=== PATIENT | male | born 2000 ===

== ENCOUNTER 2018-02-26 12:41 | Inpatient (IN) | payer BC ==
[2018-02-26] MEDS ORDERED: Sodium Chloride 0.9% 1,000 ML IV STA (12:56)
--- NOTE | 2018-02-26 13:00 | ED PDOC ---
Arrival/HPI - General Chief Complaint: Abdominal Pain Time Seen by Provider: 02/26/18 12:53 Historian: Patient - History of Present Illness Narrative History of Present Illness (Text): 02/26/18 12:58 17 y/o male, no significant pmh, nkda, c/o periumbilical pain started this morning with nausea/vomiting with no abdominal surgical history. Pt. stated that he felt fine last night, woke up this morning with lower abdominal pain, associated with nausea/vomiting, no fever or chills, no chest pain or shortness of breath, no urinary symptoms, no other medical or psychological complaints. Past Medical History - Provider Review Nursing Documentation Reviewed: Yes - Psychiatric Hx Psychophysiologic Disorder: No Hx Substance Use: No Family/Social History - Physician Review Nursing Documentation Reviewed: Yes Family/Social History: Unknown Family HX Smoking Status: Never Smoked Hx Alcohol Use: No Hx Substance Use: No Allergies/Home Meds Allergies/Adverse Reactions: Allergies No Known Allergies Allergy (Verified 02/26/18 12:42) Home Medications: Home Meds Medication Instructions Recorded Confirmed No Known Home Med 02/26/18 02/26/18 Review of Systems - Review of Systems Constitutional: absent: Fatigue, Fevers Eyes: absent: Vision Changes ENT: absent: Hearing Changes Respiratory: absent: SOB, Cough Cardiovascular: absent: Chest Pain Gastrointestinal: Abdominal Pain, Nausea, Vomiting. absent: Diarrhea Musculoskeletal: absent: Arthralgias Skin: absent: Rash, Pruritis Neurological: absent: Headache, Dizziness Psychiatric: absent: Anxiety, Depression, Suicidal Ideation Physical Exam Vital Signs Reviewed: Yes Vital Signs Temp Pulse Resp BP Pulse Ox 02/26/18 12:43 97.8 F 98 H 16 116/71 100 Temperature: Afebrile Blood Pressure: Normal Pulse: Regular Respiratory Rate: Normal Appearance: Positive for: Well-Appearing, Non-Toxic, Comfortable Pain Distress: Mild Mental Status: Positive for: Alert and Oriented X 3 - Systems Exam Head: Present: Atraumatic, Normocephalic Pupils: Present: PERRL Extroacular Muscles: Present: EOMI Conjunctiva: Present: Normal Mouth: Present: Moist Mucous Membranes Neck: Present: Normal Range of Motion Respiratory/Chest: Present: Clear to Auscultation, Good Air Exchange. No: Respiratory Distress, Accessory Muscle Use Cardiovascular: Present: Regular Rate and Rhythm, Normal S1, S2. No: Murmurs Abdomen: Present: Tenderness (periumbilical and RLQ tenderness. ), Guarding (mild RLQ and periumbilical guarding. ). No: Distention, Peritoneal Signs, Rebound Back: Present: Normal Inspection Upper Extremity: Present: Normal Inspection. No: Cyanosis, Edema Lower Extremity: Present: Normal Inspection. No: Edema Neurological: Present: GCS=15, CN II-XII Intact, Speech Normal Skin: Present: Warm, Dry, Normal Color. No: Rashes Psychiatric: Present: Alert, Oriented x 3, Normal Insight, Normal Concentration Medical Decision Making ED Course and Treatment: 02/26/18 13:00 -Labs/ua -CT abdomen and pelvis -IVF/pepcid/zofran -Observe and reassess 02/26/18 16:53 -CT abdomen and pelvis show Acute appendicitis. No perforation or abscess. -Labs show no acute findings -UA show no UTI -Pt. feels well -EKG and chest xray ordered -IV zosyn and morphine ordered. -Pt.'s pmd Dr. Pollock doesn't come to the ER, paging Dr. Rivers for admission. 02/26/18 17:00 -Last oral intake was 02/25/2018 06:00pm yesterday, NPO for the past 23 hours. -I spoke to the medical service compensation administrator, Dr. Rivers, agreed to admit to her service, request Dr. Dean Bedoya for stat consult. residential framing carpenter and Dr. Bedoya paged. 02/26/18 17:05 -I spoke to Dr. Dean Bedoya about this case/labs/radiology results, will consult on this case and recommend to call vice president corporate communications. 02/26/18 17:12 -residential framing carpenter paged again. 02/26/18 17:20 -EKG: NSR @ 77 BPM, no ST elevation or depression, no T wave inversion. 02/26/18 17:50 -Chest xray: show No active pulmonary disease. -residential framing carpenter paged again, pending call back. 02/26/18 17:59 -I spoke to the vice president corporate communications Dr. Howard Hernandez, discussed about the case/labs/radiology result, he will come to evaluate the patient now and call Dr. Bedoya after evaluation. - RAD Interpretation Radiology Orders: 02/26/18 12:56 ABD PELVIS PO & IV CONTRAST [CT] Stat Date of service: 02/26/2018 PROCEDURE: CT Abdomen and Pelvis with contrast HISTORY: periumbilical pain COMPARISON: None. TECHNIQUE: CT scan of the abdomen and pelvis was performed after administration of intravenous contrast. Oral contrast was not administered. Coronal and sagittal reformatted images were obtained. Contrast dose: 100 mL Omnipaque 350 Radiation dose: Total exam DLP = 201.81 mGy-cm. This CT exam was performed using one or more of the following dose reduction techniques: Automated exposure control, adjustment of the mA and/or kV according to patient size, and/or use of iterative reconstruction technique. FINDINGS: LOWER THORAX: The visualized lungs are clear. LIVER: Normal in size with homogeneous enhancement. No gross lesion or ductal dilatation. GALLBLADDER AND BILE DUCTS: No calcified gallstones. PANCREAS: Normal in size with homogeneous enhancement. No gross lesion or ductal dilatation. SPLEEN: Normal in size and appearance. ADRENALS: No discrete nodule. KIDNEYS AND URETERS: Normal in size with homogeneous enhancement. No hydronephrosis. No solid mass. VASCULATURE: No aortic aneurysm. BOWEL: The small bowel loops are normal in caliber. APPENDIX: The appendix is fluid-filled, distended, measures 1.4 cm in diameter with mild wall thickening and enhancement and a small intraluminal appendicoliths. There is small amount of fluid in the right lower quadrant. No perforation or abscess. PERITONEUM: The small bowel loops are normal in caliber unremarkable. No free fluid. No free air. LYMPH NODES: Unremarkable. No enlarged lymph nodes. BLADDER: Well distended and normal in appearance. REPRODUCTIVE: The prostate gland is normal in size. BONES: No acute fracture. Within normal limits for the patient's age OTHER FINDINGS: None. IMPRESSION: Acute appendicitis. No perforation or abscess. Chest xray: Date of service: 02/26/2018 HISTORY: preop COMPARISON: No prior. FINDINGS: LUNGS: The lungs are well inflated and clear. PLEURA: No pleural effusions or pneumothorax. CARDIOVASCULAR: The heart is normal in size. No aortic atherosclerotic calcification present. OSSEOUS STRUCTURES: Within normal limits for the patient's age. VISUALIZED UPPER ABDOMEN: Normal. OTHER FINDINGS: None. IMPRESSION: No active pulmonary disease. Physician Support Coordinator: Radiologist - EKG Interpretation EKG Interpretation (Text): 02/26/18 17:20 NSR @ 77 BPM, no ST elevation or depression, no T wave inversion. Interpreted by ED Physician: Yes Type: 12 lead EKG - Medication Orders Current Medication Orders: Famotidine (Pepcid) 20 mg IVP STAT STA Stop: 02/26/18 12:57 Sodium Chloride (Sodium Chloride 0.9%) 1,000 mls @ 999 mls/hr IV .Q1H1M STA Stop: 02/26/18 13:56 Ondansetron HCl (Zofran Inj) 4 mg IVP STAT STA Stop: 02/26/18 12:57 - PA / IT ARCHITECTURE ANALYST / Resident Statement MD/DO has reviewed & agrees with the documentation as recorded. Disposition/Present on Arrival - Present on Arrival Any Indicators Present on Arrival: No History of DVT/PE: No History of Uncontrolled Diabetes: No Urinary Catheter: No History of Decub. Ulcer: No History Surgical Site Infection Following: None - Disposition Have Diagnosis and Disposition been Completed?: Yes Diagnosis: Appendicitis Disposition: HOSPITALIZED Disposition Time: 16:54 Patient Plan: Admission Patient Problems: Current Active Problems Problem Status Onset Appendicitis Acute Condition: STABLE
[2018-02-26] MEDS ORDERED: Iohexol 350 MG/100 ML VIAL ONE (13:08)
[2018-02-26] MEDS ORDERED: Iohexol 240 (50 ml) ONE (13:09)
[2018-02-26 13:31] LABS: BASO # 0.01 K/mm3 (0.0-2.0); BASO % 0.1 % (0.0-3.0); EOS # 0.1 (0.0-0.7); EOS % 0.5 % (1.5-5.0); GRAN # 8.1 (1.4-6.5); GRAN % 79.7 % (50.0-68.0); HEMOGLOBIN 14.7 g/dL (14.0-18.0); LYMPH # 1.2 (1.2-3.4); LYMPH % 11.8 % (22.0-35.0); MEAN CELL VOLUME 91.1 fl (80.0-105.0); MEAN CORPUSCULAR HEMOGLOBIN 31.1 pg (25.0-35.0); MEAN CORPUSCULAR HGB CONC 34.2 g/dl (31.0-37.0); MONO # 0.8 (0.1-0.6); MONO % 7.9 % (1.0-6.0); RBC 4.72 10^6/uL (3.5-6.1); WHITE BLOOD COUNT 10.2 10^3/uL (4.5-11.0)
[2018-02-26 13:32] LABS: URINE APPEARANCE CLEAR (CLEAR); URINE BILIRUBIN NEGATIVE (NEGATIVE); URINE BLOOD NEGATIVE (NEGATIVE); URINE COLOR LIGHT YELLOW (YELLOW); URINE GLUCOSE (UA) NEGATIVE (NEGATIVE); URINE LEUKOCYTE ESTERASE NEGATIVE Leu/uL (NEGATIVE); URINE PROTEIN NEGATIVE mg/dL (<30 mg/dL); URINE UROBILINOGEN 0.2 E.U./dL (<1 E.U./dL)
[2018-02-26 13:43] LABS: ALB/GLOB RATIO 1.2 (1.1-1.8); ALBUMIN 4.8 g/dL (3.0-4.8); ALT/SGPT 20 U/L (7-56); AST/SGOT 24 U/L (17-59); BLOOD UREA NITROGEN 17 mg/dL (7-21); CALCIUM 9.5 mg/dL (8.4-10.5); GFR NON-AFRICAN AMERICAN > 60; LIPASE 18 U/L (23-300)
--- NOTE | 2018-02-26 16:48 | CT ---
Date of service: 02/26/2018 PROCEDURE: CT Abdomen and Pelvis with contrast HISTORY: periumbilical pain COMPARISON: None. TECHNIQUE: CT scan of the abdomen and pelvis was performed after administration of intravenous contrast. Oral contrast was not administered. Coronal and sagittal reformatted images were obtained. Contrast dose: 100 mL Omnipaque 350 Radiation dose: Total exam DLP = 201.81 mGy-cm. This CT exam was performed using one or more of the following dose reduction techniques: Automated exposure control, adjustment of the mA and/or kV according to patient size, and/or use of iterative reconstruction technique. FINDINGS: LOWER THORAX: The visualized lungs are clear. LIVER: Normal in size with homogeneous enhancement. No gross lesion or ductal dilatation. GALLBLADDER AND BILE DUCTS: No calcified gallstones. PANCREAS: Normal in size with homogeneous enhancement. No gross lesion or ductal dilatation. SPLEEN: Normal in size and appearance. ADRENALS: No discrete nodule. KIDNEYS AND URETERS: Normal in size with homogeneous enhancement. No hydronephrosis. No solid mass. VASCULATURE: No aortic aneurysm. BOWEL: The small bowel loops are normal in caliber. APPENDIX: The appendix is fluid-filled, distended, measures 1.4 cm in diameter with mild wall thickening and enhancement and a small intraluminal appendicoliths. There is small amount of fluid in the right lower quadrant. No perforation or abscess. PERITONEUM: The small bowel loops are normal in caliber unremarkable. No free fluid. No free air. LYMPH NODES: Unremarkable. No enlarged lymph nodes. BLADDER: Well distended and normal in appearance. REPRODUCTIVE: The prostate gland is normal in size. BONES: No acute fracture. Within normal limits for the patient's age OTHER FINDINGS: None. IMPRESSION: Acute appendicitis. No perforation or abscess.
[2018-02-26] MEDS ORDERED: Piperacillin/Tazobact 3.375 gm 100 ML IVPB STA (16:52)
[2018-02-26] MEDS ORDERED: Sodium Chloride 0.9% 1,000 ML IV SCH ×2 (17:15→19:00)
--- NOTE | 2018-02-26 17:37 | RAD ---
Date of service: 02/26/2018 HISTORY: preop COMPARISON: No prior. FINDINGS: LUNGS: The lungs are well inflated and clear. PLEURA: No pleural effusions or pneumothorax. CARDIOVASCULAR: The heart is normal in size. No aortic atherosclerotic calcification present. OSSEOUS STRUCTURES: Within normal limits for the patient's age. VISUALIZED UPPER ABDOMEN: Normal. OTHER FINDINGS: None. IMPRESSION: No active pulmonary disease.
[2018-02-26] MEDS ORDERED: Morphine 4 mg/ml ISec IVP PRN (18:39)
[2018-02-26] MEDS ORDERED: Lactated Ringer's 1,000 ML IV SCH ×2 (18:45→19:30)
--- NOTE | 2018-02-26 19:21 | CP.PCM.CON ---
<David Lawrence - Last Filed: 02/26/18 19:18> History of Present Illness - History of Present Illness History of Present Illness: 17M with no past medical history presents to [facility] [place] ED with complaints of abdominal pain. Patient states abdominal pain began yesterday night. He describes abdominal pain as being sharp and constant and located in right lower quadrant. Patient states pain kept progressing so he decided to come to ED. He reports having nausea and had one bout of non bloody emesis. At time of examination he denied fever/chills, chest pain, shortness of breath, dysuria. Last meal was at 6PM yesterday. PMH: none PSH:none Allergies: none Soc Hx: Denies smoking, denies illicit drug use, EtOH use during weekends off from work Review of Systems - Review of Systems Review of Systems: 10 pt ROS negative except as stated in HPI Past Patient History - Past Social History Smoking Status: Never Smoked - PSYCHIATRIC Hx Psychophysiologic Disorder: No Hx Substance Use: No - SURGICAL HISTORY Hx Surgeries: No Meds Allergies/Adverse Reactions: Allergies Allergy/AdvReac Type Severity Reaction Status Date / Time No Known Allergies Allergy Verified 02/26/18 18:34 - Medications Medications: Current Medications Metronidazole (Flagyl) 500 mg in 100 mls @ 100 mls/hr IVPB Q8 ZULEYMA; Protocol Ceftriaxone Sodium 500 mg/ (Sodium Chloride) 50 mls @ 100 mls/hr IVPB Q24H ZULEYMA; Protocol Sodium Chloride (Sodium Chloride 0.9%) 1,000 mls @ 100 mls/hr IV .Q10H ZULEYMA Morphine Sulfate (Morphine) 4 mg IVP Q4H PRN PRN Reason: Pain, moderate (4-7) Physical Exam - Constitutional Appears: No Acute Distress - Head Exam Head Exam: NORMOCEPHALIC - Eye Exam Eye Exam: EOMI, Normal appearance - ENT Exam ENT Exam: Mucous Membranes Moist - Respiratory Exam Respiratory Exam: NORMAL BREATHING PATTERN - Cardiovascular Exam Cardiovascular Exam: +S1, +S2 - GI/Abdominal Exam GI & Abdominal Exam: Guarding, Rebound, Soft, Tenderness. absent: Distended, Firm, Hernia, Rigid Additional comments: localized guarding in RLQ - Neurological Exam Neurological exam: Alert, Oriented x3 - Psychiatric Exam Psychiatric exam: Normal Mood - Skin Skin Exam: Dry, Intact, Warm Results - Vital Signs Recent Vital Signs: Last Vital Signs Temp 97.8 F 02/26/18 12:43 Pulse 84 02/26/18 18:18 Resp 16 02/26/18 18:18 BP 121/80 02/26/18 18:18 Pulse Ox 100 02/26/18 18:18 - Labs Result Diagrams: 02/26/18 13:17 02/26/18 13:17 Labs: Laboratory Results - last 24 hr 02/26/18 02/26/18 02/26/18 13:17 13:17 13:17 WBC 10.2 RBC 4.72 Hgb 14.7 Hct 43.0 MCV 91.1 MCH 31.1 MCHC 34.2 RDW 12.0 Plt Count 130 MPV 14.0 H Gran % 79.7 H Lymph % (Auto) 11.8 L Shelby % (Auto) 7.9 H Eos % (Auto) 0.5 L Baso % (Auto) 0.1 Gran # 8.10 H Lymph # (Auto) 1.2 Shelby # (Auto) 0.8 H Eos # (Auto) 0.1 Baso # (Auto) 0.01 Sodium 140 Potassium 4.1 Chloride 103 Carbon Dioxide 26 Anion Gap 15 BUN 17 Creatinine 0.8 Est GFR ( Amer) > 60 Est GFR (Non-Af Amer) > 60 Random Glucose 93 Calcium 9.5 Magnesium 1.9 Total Bilirubin 0.9 AST 24 ALT 20 Alkaline Phosphatase 75 Total Protein 8.8 H Albumin 4.8 Globulin 4.0 Albumin/Globulin Ratio 1.2 Lipase 18 L Urine Color Light yellow Urine Appearance Clear Urine pH 6.0 Ur Specific [place] 1.020 Urine Protein Negative Urine Glucose (UA) Negative Urine Ketones Negative Urine Blood Negative Urine Nitrate Negative Urine Bilirubin Negative Urine Urobilinogen 0.2 Ur Leukocyte Esterase Negative - Imaging and Cardiology CT scan - abdomen Status: Image reviewed by me, Report reviewed by me Assessment & Plan - Assessment and Plan (Free Text) Assessment: 17M with acute appendicitis Plan: Patient scheduled for OR for laparoscopic appendectomy possible open tonight Consent in chart NPO IVF ABx Analgesics prn Anti-emetics prn D/w Dr. Jordy Marcos PGY3 <Dean Spence - Last Filed: 02/27/18 07:54> Meds - Medications Medications: Current Medications Acetaminophen (Tylenol 325mg Tab) 650 mg PO Q4H PRN PRN Reason: Pain, moderate (4-7) Metronidazole (Flagyl) 500 mg in 100 mls @ 100 mls/hr IVPB Q8 ZULEYMA; Protocol Last Admin: 02/27/18 05:12 Dose: 100 mls/hr Ceftriaxone Sodium 500 mg/ (Sodium Chloride) 50 mls @ 100 mls/hr IVPB Q24H ZULEYMA; Protocol Last Admin: 02/26/18 22:59 Dose: 100 mls/hr Sodium Chloride (Sodium Chloride 0.9%) 1,000 mls @ 100 mls/hr IV .Q10H ZULEYMA Last Admin: 02/26/18 19:32 Dose: 100 mls/hr Ondansetron HCl (Zofran Inj) 4 mg IVP ONCE PRN PRN Reason: Nausea/Vomiting Results - Vital Signs Recent Vital Signs: Last Vital Signs Temp 97.9 F 02/26/18 22:45 Pulse 95 H 02/26/18 22:45 Resp 20 02/26/18 22:45 BP 117/72 02/26/18 22:45 Pulse Ox 98 02/26/18 22:45 - Labs Result Diagrams: 02/26/18 13:17 02/26/18 13:17 Labs: Laboratory Results - last 24 hr 02/26/18 02/26/18 02/26/18 13:17 13:17 13:17 WBC 10.2 RBC 4.72 Hgb 14.7 Hct 43.0 MCV 91.1 MCH 31.1 MCHC 34.2 RDW 12.0 Plt Count 130 MPV 14.0 H Gran % 79.7 H Lymph % (Auto) 11.8 L Shelby % (Auto) 7.9 H Eos % (Auto) 0.5 L Baso % (Auto) 0.1 Gran # 8.10 H Lymph # (Auto) 1.2 Shelby # (Auto) 0.8 H Eos # (Auto) 0.1 Baso # (Auto) 0.01 PT INR APTT Sodium 140 Potassium 4.1 Chloride 103 Carbon Dioxide 26 Anion Gap 15 BUN 17 Creatinine 0.8 Est GFR ( Amer) > 60 Est GFR (Non-Af Amer) > 60 Random Glucose 93 Calcium 9.5 Magnesium 1.9 Total Bilirubin 0.9 AST 24 ALT 20 Alkaline Phosphatase 75 Total Protein 8.8 H Albumin 4.8 Globulin 4.0 Albumin/Globulin Ratio 1.2 Lipase 18 L Urine Color Light yellow Urine Appearance Clear Urine pH 6.0 Ur Specific [place] 1.020 Urine Protein Negative Urine Glucose (UA) Negative Urine Ketones Negative Urine Blood Negative Urine Nitrate Negative Urine Bilirubin Negative Urine Urobilinogen 0.2 Ur Leukocyte Esterase Negative Blood Type Blood Type Confirm Antibody Screen BBK History Checked 02/26/18 02/26/18 02/26/18 19:00 19:20 22:57 WBC RBC Hgb Hct MCV MCH MCHC RDW Plt Count MPV Gran % Lymph % (Auto) Shelby % (Auto) Eos % (Auto) Baso % (Auto) Gran # Lymph # (Auto) Shelby # (Auto) Eos # (Auto) Baso # (Auto) PT 12.9 H INR 1.13 APTT 29.9 Sodium Potassium Chloride Carbon Dioxide Anion Gap BUN Creatinine Est GFR ( Amer) Est GFR (Non-Af Amer) Random Glucose Calcium Magnesium Total Bilirubin AST ALT Alkaline Phosphatase Total Protein Albumin Globulin Albumin/Globulin Ratio Lipase Urine Color Urine Appearance Urine pH Ur Specific [place] Urine Protein Urine Glucose (UA) Urine Ketones Urine Blood Urine Nitrate Urine Bilirubin Urine Urobilinogen Ur Leukocyte Esterase Blood Type A POSITIVE Blood Type Confirm A POSITIVE Antibody Screen Negative BBK History Checked No verified bt Assessment & Plan - Assessment and Plan (Free Text) Plan: This consult done under my direct supervision Gisela Spence MD FACS
[2018-02-26] MEDS ORDERED: Rocuronium 10 mg/ml (5 ml) ONE (19:33)
[2018-02-26] MEDS ORDERED: Succinylcholine 200 mg/10 ml Inj IV ONE (19:33)
[2018-02-26] MEDS ORDERED: Midazolam 2 MG/2 ML VIAL ONE (19:33)
[2018-02-26] MEDS ORDERED: Propofol 10 mg/ml Inj (20 ML) ONE ×2 (19:33→21:32)
[2018-02-26 19:38] LABS: INR 1.13; PARTIAL THROMBOPLASTIN TIME 29.9 Seconds (25.1-36.5); PROTHROMBIN TIME 12.9 SECONDS (9.4-12.5)
[2018-02-26] MEDS ORDERED: HYDROmorphone 1 mg/ml ISec IVP PRN (19:46)
[2018-02-26 19:47] VITALS: BMI 20.7
[2018-02-26] MEDS ORDERED: Influenza Vaccine 60 mcg/0.5 mL SYR (4YR UP) IM ONE (19:47)
[2018-02-26] MEDS ORDERED: Pneumococcal 23-Valent Vaccine IM ONE (19:47)
[2018-02-26] MEDS ORDERED: Bupivacaine 0.5% 50 ML IJ ONE (19:50)
[2018-02-26] MEDS ORDERED: cefTRIAXone 500 MG in Sodium Chloride 0.9% 50 ML IVPB SCH (20:00)
[2018-02-26] MEDS ORDERED: metroNIDAZOLE IV 500 mg/100 ml 500 MG/100 ML BAG ONE (20:03)
[2018-02-26] MEDS ORDERED: MetroNIDAZOLE 500 mg/100 ml IVPB ONE (20:05)
[2018-02-26] MEDS ORDERED: Esmolol 100 mg/10ml Inj IV ONE (20:17)
[2018-02-26] MEDS ORDERED: Neostigmine Methylsulfate 3mg/3ml Syringe IV ONE (20:20)
[2018-02-26] MEDS ORDERED: Desflurane Inhalation Anesthetic Liq (240 ml) ONE (20:30)
[2018-02-26] MEDS ORDERED: Phenylephrine 10 mg/ml Inj ONE (20:48)
--- NOTE | 2018-02-26 21:42 | PCM.SURG1 ---
Surgeon's Initial Post Op Note - Surgeon's Notes Surgeon: Dr. Spence Sourcing Consultant: Dr. Lawrence PGY3 Type of Anesthesia: General Endo Pre-Operative Diagnosis: Acute appendicitis Operative Findings: acute appendicitis Post-Operative Diagnosis: same Operation Performed: laparoscopic appendectomy Specimen/Specimens Removed: appendix Estimated Blood Loss: EBL {In ML}: 20 Blood Products Given: N/A Drains Used: No Drains Post-Op Condition: Good Date of Surgery/Procedure: 02/26/18 Time of Surgery/Procedure: 20:15
[2018-02-26] MEDS ORDERED: HYDROmorphone 1 mg/ml ISec ONE (22:01)
[2018-02-26] MEDS ORDERED: HYDROmorphone 1 mg/ml ISec IVP ONE (22:02)
[2018-02-26] MEDS: metroNIDAZOLE IV 500 mg/100 ml 500 MG/100 ML BAG IVPB SCH (22:57)
[2018-02-27 00:02] VITALS: RESP 20
[2018-02-27] MEDS: metroNIDAZOLE IV 500 mg/100 ml 500 MG/100 ML BAG IVPB SCH ×2 (05:12→13:29)
[2018-02-27 08:10] LABS: IRON 30 ug/dL (45-180)
[2018-02-27 08:19] LABS: % IRON SATURATION 10 % (20-55); TOTAL IRON BINDING CAPACITY 292 ug/dL (261-462)
[2018-02-27 08:50] LABS: BASO # 0.01 K/mm3 (0.0-2.0); BASO % 0.1 % (0.0-3.0); GRAN # 9.23 (1.4-6.5); GRAN % 87.5 % (50.0-68.0); HEMOGLOBIN 13.5 g/dL (14.0-18.0); LYMPH # 0.6 (1.2-3.4); MEAN CELL VOLUME 90.4 fl (80.0-105.0); MEAN CORPUSCULAR HEMOGLOBIN 30.8 pg (25.0-35.0); MEAN CORPUSCULAR HGB CONC 34.1 g/dl (31.0-37.0); MONO # 0.7 (0.1-0.6); MONO % 6.4 % (1.0-6.0); PLATELET COUNT 136 10^3/uL (120.0-450.0); RBC 4.38 10^6/uL (3.5-6.1); RED CELL DISTRIBUTION WIDTH 11.9 % (11.5-14.5); WHITE BLOOD COUNT 10.5 10^3/uL (4.5-11.0)
--- NOTE | 2018-02-27 09:20 | CP.PCM.PN ---
Subjective - Date & Time of Evaluation Date of Evaluation: 02/27/18 Time of Evaluation: 07:00 - Subjective Subjective: Patient seen and examined. No acute events over night. Reports feeling better. Will start regular diet this AM. Objective - Vital Signs/Intake and Output Vital Signs (last 24 hours): Temp Pulse Resp BP Pulse Ox 97.6 F 82 20 104/55 L 98 02/27/18 06:00 02/27/18 06:00 02/27/18 06:00 02/27/18 06:00 02/27/18 06:00 Intake and Output: 02/27/18 02/27/18 06:59 18:59 Intake Total 800 Output Total 500 Balance 300 - Medications Medications: Current Medications Acetaminophen (Tylenol 325mg Tab) 650 mg PO Q4H PRN PRN Reason: Pain, moderate (4-7) Metronidazole (Flagyl) 500 mg in 100 mls @ 100 mls/hr IVPB Q8 ZULEYMA; Protocol Last Admin: 02/27/18 05:12 Dose: 100 mls/hr Ceftriaxone Sodium 500 mg/ (Sodium Chloride) 50 mls @ 100 mls/hr IVPB Q24H ZULEYMA; Protocol Last Admin: 02/26/18 22:59 Dose: 100 mls/hr Sodium Chloride (Sodium Chloride 0.9%) 1,000 mls @ 100 mls/hr IV .Q10H ZULEYMA Last Admin: 02/26/18 19:32 Dose: 100 mls/hr Ondansetron HCl (Zofran Inj) 4 mg IVP ONCE PRN PRN Reason: Nausea/Vomiting - Labs Labs: 02/27/18 08:00 02/26/18 13:17 PT 12.9 SECONDS (9.4-12.5) H 02/26/18 19:20 INR 1.13 02/26/18 19:20 APTT 29.9 Seconds (25.1-36.5) 02/26/18 19:20 - Constitutional Appears: Non-toxic, No Acute Distress - Head Exam Head Exam: NORMOCEPHALIC - Eye Exam Eye Exam: EOMI, Normal appearance - ENT Exam ENT Exam: Mucous Membranes Moist - Respiratory Exam Respiratory Exam: NORMAL BREATHING PATTERN - Cardiovascular Exam Cardiovascular Exam: +S1, +S2 - GI/Abdominal Exam GI & Abdominal Exam: Soft. absent: Distended, Firm, Guarding, Rigid - Neurological Exam Neurological Exam: Alert, Awake, Oriented x3 - Psychiatric Exam Psychiatric exam: Normal Mood - Skin Skin Exam: Dry, Intact, Warm Assessment and Plan - Assessment and Plan (Free Text) Assessment: 17M s/p laparoscopic appendectomy POD1 Plan: -Resume regular diet -F/u AM labs -PO analgesics -Encourage incentive spirometer -Encourage ambulation -D/w Dr. Jordy Marcos PGY3
--- NOTE | 2018-02-27 09:52 | CARD ---
APPROVED REPORT Date of service: 02/26/2018 EKG Measurement Heart [id number] <Conclusion> Normal sinus rhythm LVH by voltage, possible a normal variant
--- NOTE | 2018-02-27 11:22 | HP ---
DATE OF EXAM: 02/26/2018 CHIEF COMPLAINT: Abdominal pain. HISTORY OF PRESENT ILLNESS: Mr. Dameon Anne is a 17 years old male without significant past medical history came with periumbilical pain started the day of admission with nauseous vomiting with no abdominal surgical history. Patient stated that he woke up this morning with lower abdominal pain associated with nausea and vomiting. No fever. No chills. Had nausea. Denies shortness of breath. No urinary symptoms. PAST MEDICAL HISTORY: Not significant. FAMILY HISTORY: Father and mother, noncontributory. HABITS: Never smoked. No drug, no ethanol. ALLERGIES: PATIENT IS NOT ALLERGIC WITH ANY MEDICATIONS. HOME MEDICATIONS: Denied. REVIEW OF SYSTEMS: Patient was seen and examined at the bedside. No fatigue or tired. No fever, no vision changes. No hearing changes. No shortness of breath or cough. No chest pain. Complaining about abdominal pain, nauseous, vomiting. No diarrhea. No arthralgia. No pruritus. No rash. No headache. No dizziness. No anxiety, depression, or suicidal ideation. PHYSICAL EXAMINATION: VITALS: Temperature 97.8, pulse 98, respiratory rate 16, and blood pressure 116/71, saturating 100%. HEENT: Head normocephalic and atraumatic. Eyes, PERRLA. Extraocular muscles intact. Conjunctivae clear. Nose patent. Mucous membrane moist. NECK: Supple. No carotid bruit. No JVD or thyromegaly. CHEST: Bilaterally symmetrical. HEART: S1 and S2 positive. LUNGS: Clear to auscultation. ABDOMEN; Soft Tender in umbilical area and right lower quadrant. Guarding, mild right lower quadrant and periumbilical guarding noted. No distention. No peritoneal signs. No rebound. EXTREMITIES: No edema. No cyanosis. NEUROLOGIC: Patient is awake and alert. Follows simple commands. LABORATORY DATA: White blood cell 10.3, hemoglobin 14.7, hematocrit 43.0, and platelets noted . Sodium 140 and potassium 4.1. BUN 17, creatinine 0.8, glucose 93. AST 24 and ALT 20, total protein is 98. ASSESSMENT AND PLAN: Mr. Dameon Anne is a 17 years old male with high protein and low lipase who came with periumbilical abdominal pain, nauseous, and vomiting. Came to know patient has acute appendicitis. Patient was scheduled for surgery for laparoscopic appendectomy possibly tonight. Consent in the chart, n.p.o., IV fluids, antibiotics, analgesic, and antiemetic. Appreciated Dr. Spence' input. We will follow up. Flaquita Rivers MD PRISCILA
[2018-02-27 12:37] LABS: FOLATE 10.2 ng/mL
[2018-02-27 15:16] VITALS: BP 109/62; PULSE 89; TEMP 97.4; O2SAT 100
--- NOTE | 2018-02-28 03:26 | DS ---
The patient was seen and examined at the bedside on 02/27/2018. The patient was admitted on 02/26/2018 and discharged home on 02/27/2018. CHIEF COMPLAINT: Abdominal pain. HISTORY OF PRESENT ILLNESS: Dameon Anne, 17 years old male without significant past medical history, came with periumbilical pain to [facility] with nauseous and vomiting. We admitted the patient to Dr. Bedoya who did the surgery. The patient did very well, discussion done with Dr. Bedoya. Heart-healthy diet given to the patient, he tolerated. No more pain. Discharge patient home. Prescription of medications are given. Followup in my office Wednesday. PAST MEDICAL HISTORY: Not significant. FAMILY HISTORY: Father and mother, noncontributory. HABITS: Never smoke. No drug. No ethanol. ALLERGIES: THE PATIENT IS NOT ALLERGIC WITH ANY MEDICATIONS. HOME MEDICATIONS: Denies. REVIEW OF SYSTEMS: The patient was seen and examined at bedside, looking comfortable. No nausea, vomiting, or diarrhea. No hematuria or hematochezia. No swelling of the legs. No chest pain. No palpitation. No acute event overnight. Reports feeling better, started heart-healthy diet. PHYSICAL EXAMINATION: VITALS: Temperature 97.6, pulse 82, respiratory rate 20, blood pressure 104/55 and pulse oximetry 98. HEENT: Head; normocephalic and atraumatic. Eyes; PERRLA. Extraocular muscles intact. Conjunctivae clear. Nose patient. Mucous membranes moist. NECK: Supple. No carotid bruit. No JVD or thyromegaly. CHEST: Bilaterally symmetrical. HEART: S1 and S2 positive. LUNGS: Clear to auscultation. ABDOMEN: Soft. Bowel sounds positive. No organomegaly. Tender at the surgical site. EXTREMITIES: No edema. No cyanosis. NEUROLOGIC: The patient is awake and alert. Moving all four extremities. No focal deficit. MEDICATIONS: morphine given, Flagyl given, IV fluid given, Tylenol and Zofran given, sent home with medications. LABORATORY DATA: White blood cells 10.5, hemoglobin 13.5, hematocrit 39.6 and platelets 136. Sodium 140, potassium 4.1, BUN 17, creatinine 0.8, hemoglobin A1c 4.6, iron 30 and cholesterol 123. ASSESSMENT AND PLAN: Mr. Dameon Anne, 17 years old, came with abdominal pain, nausea, vomiting, anemia, iron deficiency and appendicitis. Appendectomy done by Dr. Bedoay. Tolerated food, passed the gas, walking around. Discussion done with Dr. Bedoya. We discharged the patient, cleared the patient for discharge. We will follow up. Flaquita Rivers MD MTDD
== END 2018-02-27 18:00 | disposition home or self-care (01) | DRG 343 ==
LOC: ED 12:41 → ERH 17:00 → 5RNO 22:53 → OBSVTOIN 02-27 07:58
PROVIDERS: ADMIT Internal Medicine; ATTEND Internal Medicine
PROC: 0DTJ4ZZ Resection of Appendix, Percutaneous Endoscopic Approach (ICD-10-PCS; principal; 2018-02-26 19:45)
DX: K35.80 Unspecified acute appendicitis (principal); D50.9 Iron deficiency anemia, unspecified